=== PATIENT | male | born 1990 | race Caucasian/White ===

== ENCOUNTER 2016-07-04 17:37 | Emergency (ER) | payer OTHER ==
[~2016-07-04] VITALS: Ht 175.3 cm; Wt 65.8 kg
[~2016-07-04 17:37] MED LIST: AMOX875T PO; BENZ100C PO; CHLO15MO2 PO; HYDR-971 PO; PRED50TA PO
[2016-07-04 18:00] VITALS: BP 121/81
[2016-07-04] MEDS ORDERED: PRED20TA PO (19:18)
[2016-07-04] MEDS ORDERED: AMOX500T PO (19:18)
--- NOTE | 2016-07-04 19:18 | PHYS DOC ---
Past Medical History Past Medical History: No Pertinent History Past Surgical History: No Surgical History Additional Information: Nonsmoker Alcohol Use: Occasionally Drug Use: None Adult General Chief Complaint Chief Complaint: SORE THROAT HPI HPI Patient is a 25 year old male who presents with sore throat for 5 days. He also has nasal congestion, nonproductive cough, and frontal headache. He denies fever, otalgia, dyspnea, vomiting, or diarrhea. He has a history of asthma but has not needed to use his inhaler frequently. He sees a PCP at [facility]. Review of Systems Review of Systems Constitutional: Denies fever or chills. [] Eyes: Denies change in visual acuity, redness, or eye pain. [] HENT: Denies ear pain. Reports sore throat and nasal congestion. Respiratory: Denies shortness of breath. Reports nonproductive cough. Cardiovascular: Denies chest pain, palpitations or edema. [] GI: Denies abdominal pain, nausea, vomiting, bloody stools or diarrhea. [] : Denies dysuria, hematuria or urinary frequency. [] Musculoskeletal: Denies back pain or joint pain. [] Integument: Denies rash or skin lesions. [] Neurologic: Denies focal weakness or sensory changes. Reports frontal headache. Endocrine: Denies polyuria or polydipsia. [] Psych: Denies anxiety or depression. [] All systems reviewed and negative unless otherwise stated in the HPI. Allergies Allergies Allergies Coded Allergies Type Severity Reaction Last Updated Verified No Known Drug Allergies 01/08/16 No Physical Exam Physical Exam Constitutional: Well developed, well nourished, no acute distress, non-toxic appearance. [] HENT: Normocephalic, atraumatic, bilateral external ears normal, oropharynx moist, no oral exudates, nose normal. Bilateral TMs without erythema or bulging. There is posterior pharyngeal erythema with mild bilateral tonsillar edema without exudates. There is no peritonsillar abscess or uvular deviation. There is purulent drainage from bilateral nares. Eyes: PERRLA, EOMI, conjunctiva normal, no discharge. [] Neck: Normal range of motion, no tenderness, supple, no stridor. [] Cardiovascular: Heart rate regular rhythm, no murmur [] Lungs & Thorax: Bilateral breath sounds clear to auscultation without wheezes, rales, or rhonchi. Skin: Warm, dry, no erythema, no rash. [] Neurologic: Alert and oriented X 3, normal motor function, normal sensory function, no focal deficits noted. [] Psychologic: Affect normal, judgement normal, mood normal. [] Current Patient Data Vital Signs Vital Signs Date Time Temp Pulse Resp B/P Pulse Ox O2 Delivery O2 Flow Rate FiO2 07/04/16 18:00 97.9 99 14 121/81 97 Room Air 97.9 Lab Values Rapid strep negative EKG EKG [] Radiology/Procedures Radiology/Procedures [] Course & Med Decision Making Course & Med Decision Making Pertinent Labs and Imaging studies reviewed. (See chart for details) [] Dragon Disclaimer Dragon Disclaimer This electronic medical record was generated, in whole or in part, using a voice recognition dictation system. Departure Departure Impression: Primary Impression: Pharyngitis Additional Impression: Bronchitis Disposition: HOME, SELF-CARE Condition: STABLE Referrals: NO PCP (PCP) Patient Instructions: Acute Bronchitis, [id number], Viral and Bacterial Pharyngitis, [id number] Additional Instructions: Your strep test was negative. Please complete all the prescribed antibiotics and steroids, even if you are feeling better. Please continue to use your inhaler as needed for cough or shortness of breath. Please follow-up with a primary care doctor within the next week. Return to the emergency department if any new or concerning symptoms. Scripts Amoxicillin 500 Mg Tablet1 Tab PO BID #20 TAB Prov:SOPHIE SWENSON 07/04/16 Prednisone 20 Mg [id number] Mg PO DAILY 5 Days Prov:SOPHIE SWENSON 07/04/16 Problem Qualifiers Primary Impression: Pharyngitis Pharyngitis/tonsillitis etiology: unspecified etiology Qualified Code: J02.9 - Acute pharyngitis, unspecified SOPHIE SWENSON Jul 04, 2016 19:18
[2016-07-05 07:25] LABS: NEGATIVE OBC STREP NEG; POSITIVE OBC STREP POS
== END 2016-07-04 19:24 | disposition home or self-care (01) ==
LOC: ER 17:37
DX: J02.9 Acute pharyngitis, unspecified (principal); J40 Bronchitis, not specified as acute or chronic; R51 Headache
CPT/HCPCS: 87070; 87880; 99284

== ENCOUNTER 2016-08-20 17:51 | Emergency (ER) | payer OTHER ==
[~2016-08-20] VITALS: Ht 175.3 cm; Wt 63.5 kg
[~2016-08-20 17:51] MED LIST changes: +AMOX500T PO; +PRED20TA PO
[2016-08-20 18:01] VITALS: BP 135/76
--- NOTE | 2016-08-20 18:52 | PHYS DOC ---
Past Medical History Past Medical History: No Pertinent History Past Surgical History: No Surgical History Alcohol Use: Occasionally Drug Use: None Adult General Chief Complaint Chief Complaint: TOOTH ACHE OR PAIN HPI HPI Patient is a 25 year old male who presents with left lower gum dental pain that began 2 days ago. Patient states he has an appointment with the dentist on September 04, 2016. Patient denies any fever or trismus. Review of Systems Review of Systems Constitutional: See history of present illness Eyes: Denies change in visual acuity, redness, or eye pain [] HENT: Lower gum dental pain Musculoskeletal: Denies back pain or joint pain [] Integument: Denies rash or skin lesions [] Neurologic: Denies headache, focal weakness or sensory changes [] Endocrine: Denies polyuria or polydipsia [] Allergies Allergies Allergies Coded Allergies Type Severity Reaction Last Updated Verified No Known Drug Allergies 01/08/16 No Physical Exam Physical Exam Constitutional: Well developed, well nourished, no acute distress, non-toxic appearance. [] HENT: Normocephalic, atraumatic, bilateral external ears normal, oropharynx moist, no oral exudates, nose normal. [] Approximately tooth #21 is decayed. Scattered infected dental caries throughout his teeth. No gum erythema or swelling. Skin: Warm, dry, no erythema, no rash. [] Back: No tenderness, no CVA tenderness. [] Extremities: No tenderness, no cyanosis, no clubbing, ROM intact, no edema. [] Neurologic: Alert and oriented X 3, normal motor function, normal sensory function, no focal deficits noted. [] Psychologic: Affect normal, judgement normal, mood normal. [] Current Patient Data Vital Signs Vital Signs Date Time Temp Pulse Resp B/P (MAP) Pulse Ox O2 Delivery O2 Flow Rate FiO2 08/20/16 18:01 97.6 92 18 95 Room Air 97.6 EKG EKG [] Radiology/Procedures Radiology/Procedures [] Course & Med Decision Making Course & Med Decision Making Pertinent Labs and Imaging studies reviewed. (See chart for details) Patient has infected dental caries. Discharged with amoxicillin and some pain medicine. Follow-up with his own dentist on September 04, 2016 as scheduled. Dragon Disclaimer Dragon Disclaimer This electronic medical record was generated, in whole or in part, using a voice recognition dictation system. Departure Departure Impression: Primary Impression: Dentalgia Additional Impression: Infected dental carries Disposition: HOME, SELF-CARE Condition: STABLE Referrals: NO PCP (PCP) Follow-up with a dentist on September 04, 2016 as scheduled Patient Instructions: Dental Caries-Brief Additional Instructions: You were seen with infected dental caries. Please follow-up with your dentist as scheduled on September 04, 2016. Complete your antibiotics. Scripts Naproxen (NAPROXEN) 500 Mg Tablet.dr 1 TAB PO BID, #60 TAB 2 Refills Prov: GURJIT CRAWFORD APRN 08/20/16 Hydrocodone/Apap 5-325 (NORCO 5-325 TABLET) 1 Each Tablet 1-2 TAB PO Q4-6HRS, #12 TAB Prov: GURJIT CRAWFORD APRN 08/20/16 Amoxicillin (AMOXICILLIN) 875 Mg Tablet 1 TAB PO BID, #20 TAB Prov: GURJIT CRAWFORD APRN 08/20/16 Problem Qualifiers GURJIT CRAWFORD APRN August 20, 2016 18:52
[2016-08-20] MEDS ORDERED: AMOX875T PO (19:13)
[2016-08-20] MEDS ORDERED: HYDR-971 PO (19:13)
[2016-08-20] MEDS ORDERED: NAPR500T8 PO (19:13)
== END 2016-08-20 19:15 | disposition home or self-care (01) ==
LOC: ER 18:57
DX: K02.9 Dental caries, unspecified (principal); K08.89 Other specified disorders of teeth and supporting structures
CPT/HCPCS: 99283

== ENCOUNTER 2017-01-01 19:54 | Emergency (ER) | payer BC, OTHER ==
[~2017-01-01] VITALS: Ht 175.3 cm; Wt 72.6 kg
[~2017-01-01 19:54] MED LIST changes: +NAPR500T8 PO
[2017-01-01 20:15] VITALS: BP 134/82
[2017-01-01] MEDS ORDERED: AMOX500C PO (20:28)
[2017-01-01] MEDS ORDERED: HYDR-971 PO (20:28)
--- NOTE | 2017-01-01 20:28 | PHYS DOC ---
Past Medical History Past Medical History: No Pertinent History Past Surgical History: No Surgical History Alcohol Use: Occasionally Drug Use: None Adult General Chief Complaint Chief Complaint: DENTAL PROBLEM HPI HPI Patient is a 26 year old male presents to the emergency department stating that he has having left lower dental pain along the wisdom tooth. He states this is been occurring for the last 2-3 days. His been taken ibuprofen over-the- counter for the pain and discomfort with minimal relief. He denies any fever, chills or any nausea vomiting. He does state that he has a dental appointment on 17 January. No trismus noted. Review of Systems Review of Systems Constitutional: Denies fever or chills [] Eyes: Denies change in visual acuity, redness, or eye pain [] HENT: Denies nasal congestion or sore throat. Complaint of dental pain to the left lower wisdom tooth area. Respiratory: Denies cough or shortness of breath [] Cardiovascular: No additional information not addressed in HPI [] GI: Denies abdominal pain, nausea, vomiting, bloody stools or diarrhea [] : Denies dysuria or hematuria [] Musculoskeletal: Denies back pain or joint pain [] Integument: Denies rash or skin lesions [] Neurologic: Denies headache, focal weakness or sensory changes [] Endocrine: Denies polyuria or polydipsia [] Allergies Allergies Allergies Coded Allergies Type Severity Reaction Last Updated Verified No Known Drug Allergies 01/08/16 No Physical Exam Physical Exam Constitutional: Well developed, well nourished, no acute distress, non-toxic appearance. [] HENT: Normocephalic, atraumatic, bilateral external ears normal, oropharynx moist, no oral exudates, nose normal. Bilateral tympanic membranes appear to be normal. Patient was noted to have swelling and tenderness in the left lower wisdom tooth area. No drainage or discharge noted. No trismus noted. Eyes: PERRLA, EOMI, conjunctiva normal, no discharge. [] Neck: Normal range of motion, no tenderness, supple, no stridor. [] Cardiovascular:Heart rate regular rhythm, no murmur [] Lungs & Thorax: Bilateral breath sounds clear to auscultation [] Skin: Warm, dry, no erythema, no rash. [] Extremities: No tenderness, no cyanosis, no clubbing, ROM intact, no edema. [] Neurologic: Alert and oriented X 3, normal motor function, normal sensory function, no focal deficits noted. [] Psychologic: Affect normal, judgement normal, mood normal. [] EKG EKG [] Radiology/Procedures Radiology/Procedures [] Course & Med Decision Making Course & Med Decision Making Pertinent Labs and Imaging studies reviewed. (See chart for details) Patient will be discharged home with amoxicillin as well as ibuprofen instructions. He'll be provided with hydrocodone for severe pain and discomfort. Patient agrees with discharge instructions, treatment regimens and follow-up recommendations. Recommended that he keep his follow-up appointment with his dentist on January 17. Patient agrees with discharge instructions treatment regimens and follow-up recommendations. Since symptoms to return back to emergency department as been provided. All questions and concerns been answered at patient's bedside. Patient was instructed hydrocodone will cause drowsiness do not take any be alert and oriented. [] Dragon Disclaimer Dragon Disclaimer This electronic medical record was generated, in whole or in part, using a voice recognition dictation system. Departure Departure Impression: Primary Impression: Dental abscess Disposition: 01 HOME, SELF-CARE Condition: STABLE Referrals: AMAYA PACE (PCP) Patient Instructions: Dental Abscess Additional Instructions: Activity as tolerated. Medication as prescribed. Ibuprofen 800 mg every 8 hours. Hydrocodone for severe pain and discomfort. This medication will cause drowsiness do not take any be alert and oriented. Warm salt water mouth rinses 4 times a day. Keep your dental appointment you have on January 17. Return back to emergency prior signs symptoms of become worse. Scripts Hydrocodone/Apap 5-325 (NORCO 5-325 TABLET) 1 Each Tablet 1 TAB PO PRN Q6HRS Y for PAIN, #10 TAB 0 Refills Prov: JULIO COTO APRN 01/01/17 Amoxicillin (AMOXICILLIN) 500 Mg Capsule 1 CAP PO QID, #40 CAP Prov: JULIO COTO APRN 01/01/17 JULIO COTO APRN Jan 01, 2017 20:28
== END 2017-01-01 20:33 | disposition home or self-care (01) ==
LOC: ER 19:54
DX: K04.7 Periapical abscess without sinus (principal)
CPT/HCPCS: 99283

== ENCOUNTER 2017-02-16 18:10 | Emergency (ER) | payer BC ==
[~2017-02-16] VITALS: Ht 175.3 cm; Wt 72.6 kg
[~2017-02-16 18:10] MED LIST changes: +AMOX500C PO
[2017-02-16 18:15] VITALS: BP 127/81
[2017-02-16] MEDS ORDERED: NAPROXEN 500 MG TABLET PO STA (18:43)
[2017-02-16] MEDS ORDERED: ONDANSETRON ODT 4 MG TAB.RAPDIS. PO ONE (18:45)
[2017-02-16] MEDS ORDERED: ONDA4TAB10 SL (18:54)
[2017-02-16] MEDS ORDERED: CYCL10TA2 PO (18:54)
[2017-02-16] MEDS ORDERED: NAPR500T8 PO (18:54)
--- NOTE | 2017-02-16 18:55 | PHYS DOC ---
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 Patient denies any known injury. Denies any urgency frequency dysuria or hematuria. Denies any fever. Patient states his pain is worse on movement. Describes the pain as throbbing. Patient's also complaining of nausea vomiting after eating "a bad sandwich at work" today. Patient states he has generalized abdominal pain as well. Denies any diarrhea. Denies any hematemesis or melena. Review of Systems Review of Systems Constitutional: Denies fever or chills [] Eyes: Denies change in visual acuity, redness, or eye pain [] HENT: Denies nasal congestion or sore throat [] Respiratory: Denies cough or shortness of breath [] Cardiovascular: No additional information not addressed in HPI [] GI: Generalized abdominal pain, nausea vomiting, denies diarrhea [] : Denies dysuria or hematuria [] Musculoskeletal: Bilateral mid back pain Integument: Denies rash or skin lesions [] Neurologic: Denies headache, focal weakness or sensory changes [] All other systems were reviewed and found to be within normal limits, except as documented in this note. Current Medications Current Medications Current Medications Medications (Trade) Dose Ordered Sig/[facility] Start Time Stop Time Status Last Admin Dose Admin Naproxen (Naprosyn) 500 mg 1X STAT 02/16/17 18:43 02/16/17 18:46 DC Ondansetron HCl (Zofran Odt) 4 mg 1X ONCE 02/16/17 18:45 02/16/17 18:46 DC Allergies Allergies Allergies Coded Allergies Type Severity Reaction Last Updated Verified No Known Drug Allergies 01/08/16 No Physical Exam Physical Exam Constitutional: Well developed, well nourished, no acute distress, non-toxic appearance. [] HENT: Normocephalic, atraumatic, bilateral external ears normal, oropharynx moist, no oral exudates, nose normal. [] Eyes: PERRLA, EOMI, conjunctiva normal, no discharge. [] Neck: Normal range of motion, no tenderness, supple, no stridor. [] Cardiovascular:Heart rate regular rhythm, no murmur [] Lungs & Thorax: Bilateral breath sounds clear to auscultation [] Abdomen: Bowel sounds normal, soft, no tenderness, no masses, no pulsatile masses. [] Skin: Warm, dry, no erythema, no rash. [] Back: No tenderness, no CVA tenderness. [] Extremities: No tenderness, no cyanosis, no clubbing, ROM intact, no edema. [] Neurologic: Alert and oriented X 3, normal motor function, normal sensory function, no focal deficits noted. [] Psychologic: Affect normal, judgement normal, mood normal. [] Current Patient Data Vital Signs Vital Signs Date Time Temp Pulse Resp B/P (MAP) Pulse Ox O2 Delivery O2 Flow Rate FiO2 02/16/17 18:15 97.8 84 16 97 Room Air 97.8 EKG EKG [] Radiology/Procedures Radiology/Procedures [] Course & Med Decision Making Course & Med Decision Making Pertinent Labs and Imaging studies reviewed. (See chart for details) Patient is in the ED with thoracic muscle strain. Discharged with cyclobenzaprine and naproxen. He also has nausea and vomiting after eating "a bad sandwich at work". Discharged with Zofran. Instructed to push fluids. Recommended a clear diet and advance as tolerated. Provided return precautions and discharged in stable condition. Dragon Disclaimer Dragon Disclaimer This electronic medical record was generated, in whole or in part, using a voice recognition dictation system. Departure Departure Impression: Primary Impression: Food poisoning Additional Impression: Acute thoracic myofascial strain Disposition: 01 HOME, SELF-CARE Condition: STABLE Referrals: AMAYA PACE (PCP) Follow-up with your doctor in one week Patient Instructions: Food Poisoning, Thoracic Strain, [id number] Additional Instructions: You were seen for thoracic muscle strain and food poisoning. Take the prescribed medicines as ordered. Do not drive or operate machinery on the cyclobenzaprine. Take Zofran as needed for nausea vomiting. Push fluids and advance your diet slowly from clear liquids to eventually regular diet. Scripts Cyclobenzaprine Hcl (CYCLOBENZAPRINE HCL) 10 Mg Tablet 1 TAB PO TID, #30 TAB Prov: GURJIT CRAWFORD STATISTICAL DEVELOPER 02/16/17 Naproxen (NAPROXEN) 500 Mg Tablet.dr 1 TAB PO BID, #20 TAB 0 Refills Prov: GURJIT CRAWFORD STATISTICAL DEVELOPER 02/16/17 Ondansetron (ZOFRAN ODT) 4 Mg Tab.rapdis 1 TAB SL Q8HRS, #15 TAB Prov: GURJIT CRAWFORD WILFRIDO 02/16/17 Problem Qualifiers Primary Impression: Food poisoning Encounter type: initial encounter Injury intent: accidental or unintentional Qualified Codes: T62.91XA - Toxic effect of unspecified noxious substance eaten as food, accidental (unintentional), initial encounter Additional Impression: Acute thoracic myofascial strain Encounter type: initial encounter Qualified Codes: S29.019A - Strain of muscle and tendon of unspecified wall of thorax, initial encounter WASHINGTONGURJIT ABRAHAM WILFRIDO Feb 16, 2017 18:55
== END 2017-02-16 19:06 | disposition home or self-care (01) ==
LOC: ER 18:10
DX: S29.012A Strain of muscle and tendon of back wall of thorax, initial encounter (principal); T62.91XA Toxic effect of unspecified noxious substance eaten as food, accidental (unintentional), initial encounter; J45.909 Unspecified asthma, uncomplicated; X50.0XXA Overexertion from strenuous movement or load, initial encounter; Y93.89 Activity, other specified; Y99.8 Other external cause status; Y92.89 Other specified places as the place of occurrence of the external cause
CPT/HCPCS: 99283; Q0162

== ENCOUNTER 2017-07-27 18:13 | Emergency (ER) | payer BC | END 2017-07-27 18:30 | disposition home or self-care (01) | LOC: ER 18:30 | DX: L73.9 Follicular disorder, unspecified (principal); J45.909 Unspecified asthma, uncomplicated | CPT/HCPCS: 99283 ==

== ENCOUNTER 2017-09-24 18:53 | Emergency (ER) | payer BC ==
[2017-09-23] MEDS: IV NORMAL SALINE 1000ML BAG 1,000 ML IV (19:15)
[2017-09-24] MEDS: FOSPHENYTOIN 1,000 MG in IV NORMAL SALINE 50ML 50 ML IV (19:30)
[2017-09-24] MEDS: IV NORMAL SALINE 1000ML BAG 1,000 ML IV (19:58)
== END 2017-09-24 20:05 | disposition short-term general hospital (02) ==
LOC: ER 18:53
DX: S01.90XA Unspecified open wound of unspecified part of head, initial encounter (principal); J45.909 Unspecified asthma, uncomplicated; Y93.89 Activity, other specified; Y92.89 Other specified places as the place of occurrence of the external cause; Y99.8 Other external cause status
CPT/HCPCS: 36415; 36600; 70450; 70486; 71045; 72125; 80048; 80076; 80307; 80329; 81001; 82805; 85025; 85610; 85730; 96365; 99291; G0480; G6039; J7030; Q2009